=== PATIENT | female | born 1970 | race African-American/Black ===

== ENCOUNTER 2019-09-01 18:11 | Emergency (ER) | payer SELFPAY ==
[~2019-09-01] VITALS: Ht 172.7 cm; Wt 81.6 kg
[2019-09-01] MEDS ORDERED: ALBUTEROL2.5 MG/3 M INH (18:21)
[2019-09-01 18:29] VITALS: BP 149/64
--- NOTE | 2019-09-01 18:34 | NUR ---
ED Nurse Note: Patient brought in to ER from [facility] by ambulance due to hearing voices. per EMS pt was found in the car in the parking lot of [employer] and she claimed that she hears voices. pt aao x1 to name only and crying as stating "They put wire everywhere in me. in my eyes, in my ass and everywhere!" skin clean and intact. no combative behavior at this moment. pt follows commands. no pulmonary or cardiac distress noted at this moment.
--- NOTE | 2019-09-01 19:01 | NUR ---
ED Nurse Note: pt calmer than earlier but still crying. pt still believes she has been wired.
--- NOTE | 2019-09-01 19:08 | NUR ---
HAND-OFF: Report given to RODOLFO Whitney. blood needs to be redrawn due to hemolizing. pt is sitting on bedpan.
[2019-09-01 19:09] VITALS: BP 136/88
--- NOTE | 2019-09-01 19:09 | NUR ---
ED Nurse Note: endorsement received from bere villarreal pt is currently trying to urinate. no distress noted. vss. will attempted redraw blood per lab d/t blood specimen clotting.
--- NOTE | 2019-09-01 19:20 | NUR ---
ED Nurse Note: Blood and urine specimen sent to lab.
[2019-09-01 19:24] LABS: ANION GAP 11 mmol/L (5-15); BLOOD UREA NITROGEN 11 mg/dL (7-18); CALCIUM 9.6 MG/DL (8.5-10.1); CARBON DIOXIDE 27 MMOL/L (21-32); CHLORIDE 107 MMOL/L (98-107); CREATININE 0.9 MG/DL (0.55-1.30); SODIUM 145 MMOL/L (136-145)
[2019-09-01 19:31] LABS: ALANINE AMINOTRANSFERASE 22 U/L (12-78); ALBUMIN 3.9 G/DL (3.4-5.0); ALKALINE PHOSPHATASE 76 U/L (46-116); ASPARTATE AMINO TRANSFERASE 23 U/L (15-37); BILIRUBIN,TOTAL 0.6 MG/DL (0.2-1.0)
[2019-09-01 19:31] LABS: APPEARANCE,URINE CLEAR; BILIRUBIN, URINE NEGATIVE (NEGATIVE); COLOR,URINE AMBER; GLUCOSE, URINE (UA) NEGATIVE (NEGATIVE); KETONES,URINE 1+ (NEGATIVE); LEUKOCYTE ESTERASE ,URINE NEGATIVE (NEGATIVE); NITRITE,URINE NEGATIVE (NEGATIVE); PH,URINE 6 (4.5-8.0); PROTEIN,URINE 1+ (NEGATIVE); UROBILINOGEN,URINE NORMAL MG/DL (0.0-1.0)
[2019-09-01 19:34] LABS: BASOPHILS % (AUTO) 0.9 % (0.0-2.0); EOSINOPHILS % (AUTO) 2.2 % (0.0-3.0); HEMATOCRIT 35.8 % (37.0-47.0); HEMOGLOBIN 11.7 G/DL (12.0-16.0); MEAN CORPUSCULAR VOLUME 80 FL (80-99); MONOCYTES % (AUTO) 5.4 % (1.0-10.0); NEUTROPHILS % (AUTO) 71.4 % (45.0-75.0); PLATELET COUNT 365 K/UL (150-450); RED BLOOD COUNT 4.48 M/UL (4.20-5.40); RED CELL DISTRIBUTION WIDTH 14.6 % (11.6-14.8); WHITE BLOOD COUNT 8.1 K/UL (4.8-10.8)
--- NOTE | 2019-09-01 20:41 | Emergency Room Report ---
History of Present Illness General Chief Complaint: Behavioral Complaint Source: Patient Present Illness HPI 49-year-old female with unknown psychiatric history brought in by paramedics after feeling shaky inside her car. Patient denies any loss of consciousness and trauma to the head. Denies any past psychiatric disorder and drug use. Reports that there is a chip inside her mouth which is why her to the Internet and making her hearing voices. Patient denies any suicidal or homicidal ideation and reports that the voices are not telling her to harm herself or others. Patient denies having access to firearms. Denies difficulty sleeping, appetite change. Denies history of anxiety and depression. Expresses that she is interested in getting psychiatric help voluntarily. Denies chest pain, shortness of breath, palpitation, abdominal pain, nausea vomiting, headache and dizziness. According to the paramedics patient was sitting in side her car and her car was loaded with all of her belongings patient started feeling shaky reporting that she is having a seizure for patient was screaming that there is a chip inside her mouth and paramedics arrived. No signs of trauma noted. Denies loss of consciousness. Reports that she lives inside her car. Allergies: Coded Allergies: PENICILLINS (Verified Allergy, Unknown, 09/01/19) PHENOBARBITAL (Verified Allergy, Unknown, 09/01/19) Patient History Past Medical History: see triage record Past Surgical History: unable to obtain Family History: none Now: No Immunizations: UTD Reviewed Nursing Documentation: PMH: Agreed; PSxH: Agreed Nursing Documentation-PMH Hx Asthma: Yes Review of Systems All Other Systems: negative except mentioned in HPI Physical Exam Vital Signs Date Time Temp Pulse Resp B/P (MAP) Pulse Ox O2 Delivery O2 Flow Rate FiO2 09/01/19 18:15 98.2 134 24 140/90 (107) 99 Room Air Sp02 EP Interpretation: reviewed, normal General Appearance: alert/responsive, no apparent distress, GCS 15, non-toxic Head: atraumatic Eyes: PERRL, lids + conjunctiva normal ENT: hearing intact, no angioedema Neck: supple/symm/no masses, no meningismus Respiratory: effort normal, no wheezing, chest symmetrical Cardiovascular: regular rate, rhythm, no edema Gastrointestinal: non-tender, no mass, non-distended, no rebound/guarding, normal bowel sounds, no bruit Genitourinary: no CVA tenderness Musculoskeletal: gait & station normal Neurologic: oriented x3, sensory intact, normal speech Psychiatric: judgment & insight normal, no suicidal/homicidal ideation, other - delusions and hallucinations Skin: no rash, well hydrated Lymphatic: normal inspection, normal cervical nodes Medical Decision Making PA Attestation All my diagnosis and treatment plans were reviewed ad discussed with my supervising physician Dr. Cagle Diagnostic Impression: Primary Impression: Psychotic disorder Additional Impressions: Marijuana abuse UTI (urinary tract infection) ER Course 49-year-old female with unknown psychiatric history brought in by paramedics after feeling shaky inside her car. Patient denies any loss of consciousness and trauma to the head. Denies any past psychiatric disorder and drug use. Reports that there is a chip inside her mouth which is why her to the Internet and making her hearing voices. Patient denies any suicidal or homicidal ideation and reports that the voices are not telling her to harm herself or others. Patient denies having access to firearms. Denies difficulty sleeping, appetite change. Denies history of anxiety and depression. Expresses that she is interested in getting psychiatric help voluntarily. Denies chest pain, shortness of breath, palpitation, abdominal pain, nausea vomiting, headache and dizziness. According to the paramedics patient was sitting in side her car and her car was loaded with all of her belongings patient started feeling shaky reporting that she is having a seizure for patient was screaming that there is a chip inside her mouth and paramedics arrived. No signs of trauma noted. Denies loss of consciousness. Reports that she lives inside her car. Ddx considered but are not limited to: generalized anxiety disorder, panic attack, depression with psychotic feature, bipolar disorder, drug overdose Vital signs: are WNL, pt. is afebrile H&PE are most consistent with: Psychotic disorder, marijuana abuse, incidental finding of UTI patient was given a gram of Rocephin due to possibly being noncompliant with taking oral medication at home. ORDERS: Psychiatric order set ED INTERVENTIONS: NS bolus DISCHARGE: At this time pt. is stable for d/c to home. Will provide printed patient care instructions, and any necessary prescriptions. Care plan and follow up instructions have been discussed with the patient prior to discharge. Patient was tachycardic upon arrival however heart rate was within normal limits 10 minutes after arrival to the ED and after given 1 L of NS bolus patient's heart rate was normalized. Patient to follow-up with a psychiatrist I gave her a list of mental health facility that she could contact as patient was going voluntarily to follow-up with a psychiatrist. Patient did not elicit any suicidal or homicidal ideation at the time of discharge. EKG Diagnostic Results Rate: normal Rhythm: NSR ST Segments: no acute changes Other Impression No acute ST changes Chest X-Ray Diagnostic Results Chest X-Ray Diagnostic Results : Chest X-Ray Ordered: Yes # of Views/Limited/Complete: 1 View Indication: Other EP Interpretation: Yes Interpretation: no consolidation, no effusion, no pneumothorax Impression: No acute disease Electronically Signed by: Flower Oh PA-C Last Vital Signs Date Time Temp Pulse Resp B/P (MAP) Pulse Ox O2 Delivery O2 Flow Rate FiO2 09/01/19 19:09 98.3 90 12 136/88 98 Room Air Disposition: HOME, SELF-CARE Condition: Stable Patient Instructions: Cannabis Use Disorder, Psychosis Additional Instructions: Go to mental disease for further assessment if worsening symptoms return to emergency room. At this time you are medically cleared to go voluntarily to psychiatric facilities. Flower Muñoz Sep 01, 2019 20:41
[2019-09-01 20:55] VITALS: BP 131/82
[2019-09-01] MEDS ORDERED: cefTRIAXone 1 GM in NS 55 ML IVPB ONE (21:30)
--- NOTE | 2019-09-01 22:30 | NUR ---
ED Nurse Note: pt was dc per [facility]. pt is aox4, states she will use a private vehicle as mode of transporting home. pt is ambulatory with steady. pt took all belongings and verbalized discharge instructions. Iv site and id band removed
[2019-09-01 22:33] VITALS: BP 142/84
--- NOTE | 2019-09-02 12:33 | Diagnostic Imaging Report ---
Indication: Chest pain Technique: One view of the chest Comparison: none Findings: Lungs and pleural spaces are clear. Heart size is normal. Impression: No acute process
--- NOTE | 2019-09-02 16:46 | Cardiology Report ---
APPROVED REPORT EKG Measurement Heart [id number] Normal sinus rhythm Nonspecific ST abnormality Abnormal ECG
== END 2019-09-01 22:30 | disposition home or self-care (01) ==
LOC: EDBD 18:11 → EMR 20:30
DX: F23 Brief psychotic disorder (principal); N39.0 Urinary tract infection, site not specified; F12.10 Cannabis abuse, uncomplicated; J45.909 Unspecified asthma, uncomplicated; Z88.0 Allergy status to penicillin; Z88.8 Allergy status to other drugs, medicaments and biological substances; Z59.0 Homelessness
CPT/HCPCS: 36415; 71045; 80053; 80307; 81001; 85025; 87086; 93005; 96361; 96365; 99284; G0480; J0696; J7030